=== PATIENT | female | born 1965 | race Caucasian/White ===

== ENCOUNTER 2018-06-21 07:23 | Day surgery (SDC) | payer OTHER ==
[2018-06-21] MEDS ORDERED: LIDOCAINE 4% SOLUTION 50 ML BTL (09:28)
[2018-06-21] MEDS ORDERED: MIDAZOLAM 1 MG/ML 2 ML INJ ×3 (10:19)
[2018-06-21] MEDS ORDERED: FENTAnyl 50 MCG/ML VIAL (10:19)
== END 2018-06-21 12:58 | disposition home or self-care (01) ==
LOC: GIL 07:23
DX: Z12.11 Encounter for screening for malignant neoplasm of colon (principal); K29.50 Unspecified chronic gastritis without bleeding; K21.0 Gastro-esophageal reflux disease with esophagitis; K64.4 Residual hemorrhoidal skin tags
CPT/HCPCS: 43239; 88305; 88312; 88313

== ENCOUNTER 2018-07-13 08:09 | Day surgery (SDC) | payer OTHER ==
[~2018-07-13 08:09] MED LIST: BALANCED SALT SOLN 15 ML OPH IRRIG; MOXIFLOXACIN 0.5% 3 ML OPH OPER; SOD CHLORIDE 0.9% 1,000 ML IV
[2018-07-13] MEDS: SOD CHLORIDE 0.9% 1,000 ML IV (09:25)
[2018-07-13] MEDS: MOXIFLOXACIN 0.5% 3 ML OPH OPER ×3 (09:29→09:39)
[2018-07-13] MEDS ORDERED: MITOMYCIN 5 MG INJ OP (10:00)
[2018-07-13] MEDS ORDERED: ONDANSETRON 4 MG INJ IV (10:30)
[2018-07-13] MEDS ORDERED: HYDROmorphONE 1 MG/5 ML IV SYRINGE IV (10:30)
[2018-07-13] MEDS ORDERED: FENTAnyl 50 MCG/ML VIAL IV ×2 (10:30)
[2018-07-13] MEDS ORDERED: LABETALOL HCL 20MG INJ IV (10:30)
[2018-07-13] MEDS: LIDOCAINE 1%/EPI 30 ML INJ (10:54)
[2018-07-13] MEDS ORDERED: TOBRAMYCIN 0.3% 3.5 GM OPH OINT (10:54)
[2018-07-13] MEDS ORDERED: PROPOFOL 20 ML (11:09)
[2018-07-13] MEDS ORDERED: MIDAZOLAM 1 MG/ML 2 ML INJ (11:09)
[2018-07-13] MEDS ORDERED: FENTAnyl 50 MCG/ML VIAL (11:16)
[2018-07-13] MEDS ORDERED: ONDANSETRON 4 MG INJ (11:23)
[2018-07-13] MEDS ORDERED: METOCLOPRAMIDE 10 MG INJ (11:23)
== END 2018-07-13 12:38 | disposition home or self-care (01) ==
LOC: SDS 08:09
DX: H11.002 Unspecified pterygium of left eye (principal); E78.00 Pure hypercholesterolemia, unspecified
CPT/HCPCS: 65426; 84703